=== PATIENT | male | born 1995 | race African-American/Black ===

== ENCOUNTER 2016-11-02 22:42 | Emergency (ER) | payer SELFPAY ==
[~2016-11-02] VITALS: Ht 172.7 cm; Wt 81.4 kg
[2016-11-02 22:46] VITALS: BP 142/81; PULSE 82; TEMP 98.2
[2016-11-02] MEDS ORDERED: BUSPIRONE HCL7.5 MG PO (22:50)
[2016-11-02] MEDS ORDERED: ATARAX 10MG10 MG/TAB PO (22:50)
== END 2016-11-02 23:12 | disposition home or self-care (01) ==
LOC: COL.ER 22:42
DX: S61.512A Laceration without foreign body of left wrist, initial encounter (principal); X78.9XXA Intentional self-harm by unspecified sharp object, initial encounter; F19.10 Other psychoactive substance abuse, uncomplicated; F32.9 Major depressive disorder, single episode, unspecified; F41.9 Anxiety disorder, unspecified